=== PATIENT | female | born 1995 | race Caucasian/White ===

== ENCOUNTER 2016-10-07 06:42 | Inpatient (IN) | payer OTHER ==
[2016-10-07] VITALS (18 sets, daily range): BP systolic 104–136; BP diastolic 50–82
[~2016-10-07] VITALS: Ht 157.5 cm; Wt 95.7 kg
[2016-10-07 08:00] LABS: EOSINOPHIL (%) 1.5 % (0-5); EOSINOPHIL COUNT 0.2 K/uL (0-0.3); HEMATOCRIT 37.6 % (36.0-46.0); IMMATURE GRANULOCYTE COUNT 0.1 K/uL; INSTRUMENT ABS NEUTROPHIL CT 8.7 K/uL; LYMPHOCYTE COUNT 2.3 K/uL (1.0-2.8); MEAN PLAT.VOLUME 10.5 uM^3 (9.5-12.4); MONOCYTE (%) 6.7 % (3-12); MONOCYTE COUNT 0.8 K/uL (0-0.8); NEUTROPHIL (%) 71.8 % (45-76); NEUTROPHIL COUNT 8.7 K/uL (1.8-6.4); PLATELET COUNT 243 K/uL (156-360); RBC DIS.WIDTH-CV 13.4 % (11.8-14.6); RBC DIS.WIDTH-SD 44.3 % (39-53); RED BLOOD COUNT 4.13 M/uL (3.80-5.20); WHITE BLOOD COUNT 12.2 K/uL (4.1-10.2)
[2016-10-08] VITALS (31 sets, daily range): BP systolic 100–134; BP diastolic 52–79
[2016-10-08] MEDS ORDERED: IBUPROFEN800 MG PO (19:01)
[2016-10-08] MEDS ORDERED: ENDOCET 5-3251 EACH PO (19:01)
[2016-10-09] VITALS (7 sets, daily range): BP systolic 101–119; BP diastolic 50–66
[2016-10-09 07:46] LABS: EOSINOPHIL (%) 0.1 % (0-5); HEMATOCRIT 29.7 % (36.0-46.0); IMMATURE GRANULOCYTE (%) 0.7 % (0.0-0.7); IMMATURE GRANULOCYTE COUNT 0.1 K/uL; INSTRUMENT ABS NEUTROPHIL CT 10.6 K/uL; MCH 30.4 PG (29.0-34.0); MCV 92.2 FL (83-99); MEAN PLAT.VOLUME 10.6 uM^3 (9.5-12.4); MONOCYTE (%) 7.4 % (3-12); NEUTROPHIL (%) 77.4 % (45-76); NEUTROPHIL COUNT 10.6 K/uL (1.8-6.4); PLATELET COUNT 193 K/uL (156-360); RBC DIS.WIDTH-CV 13.7 % (11.8-14.6); RBC DIS.WIDTH-SD 45.7 % (39-53); WHITE BLOOD COUNT 13.8 K/uL (4.1-10.2)
[2016-10-09 07:51] LABS: RED BLOOD COUNT 3.22 M/uL (3.80-5.20)
[2016-10-10 03:06] VITALS: BP 117/62
[2016-10-10 06:59] VITALS: BP 120/58
[2016-10-10 11:01] VITALS: BP 115/55
[2016-10-10 14:40] VITALS: BP 131/61
[2016-10-11 00:04] VITALS: BP 122/65
== END 2016-10-11 11:15 | disposition home or self-care (01) | DRG 765 ==
LOC: LDRP-OP 06:42 → 2WEST 06:43 → LDRP-OP 07:22 → 2WEST 10-08 17:55
PROVIDERS: Obstetrics & Gynecology
PROC: 3E033VJ Introduction of Other Hormone into Peripheral Vein, Percutaneous Approach (ICD-10-PCS; 2016-10-07)
PROC: 10907ZC Drainage of Amniotic Fluid, Therapeutic from Products of Conception, Via Natural or Artificial Opening (ICD-10-PCS; 2016-10-07)
PROC: 10D00Z1 Extraction of Products of Conception, Low, Open Approach (ICD-10-PCS; principal; 2016-10-08)
PROC: 3E0S3BZ Introduction of Anesthetic Agent into Epidural Space, Percutaneous Approach (ICD-10-PCS; 2016-10-08)
DX: O76 Abnormality in fetal heart rate and rhythm complicating labor and delivery (principal); O41.03X1 Oligohydramnios, third trimester, fetus 1; Z37.0 Single live birth; Z3A.40 40 weeks gestation of pregnancy; O62.2 Other uterine inertia; O61.0 Failed medical induction of labor; O99.824 Streptococcus B carrier state complicating childbirth; J45.990 Exercise induced bronchospasm; O99.52 Diseases of the respiratory system complicating childbirth; I95.9 Hypotension, unspecified; E66.9 Obesity, unspecified; O99.214 Obesity complicating childbirth; Z68.38 Body mass index [BMI] 38.0-38.9, adult; O12.04 Gestational edema, complicating childbirth
CPT/HCPCS: 85025; C1755; G0378; J0690; J1100; J2210; J2274; J2405; J2540; J2590; J3010; J7120